=== PATIENT | female | born 1990 ===

== ENCOUNTER 2016-09-18 10:34 | Emergency (ER) | payer OTHER ==
[2016-09-18] MEDS ORDERED: Albuterol-Ipratrop 3 mg / 0.5 (3 ml) UD ONE ×2 (11:03→12:07)
[2016-09-18] MEDS ORDERED: Albuterol-Ipratrop 3 mg / 0.5 (3 ml) UD INH STA ×2 (11:04→11:45)
--- NOTE | 2016-09-18 12:34 | C.PDOC ---
History Of Present Illness 26-year-old female, PMHx includes Asthma, presents to the emergency department with complaints of an increased cough and wheezing, after she was sitting in her class prior to arrival. Patient states it was very hot and may have exacerbated her asthma. Denies nausea/vomiting, shortness of breath, chest pain or any other associated symptoms. No other complaints at this time. Time Seen by Provider: 09/18/16 10:55 Chief Complaint (Nursing): Shortness Of Breath History Per: Patient History/Exam Limitations: no limitations Onset/Duration Of Symptoms: Hrs Current Symptoms Are (Timing): Still Present Current Respiratory Medications: None (Patient did not have her inhaler) Pain Scale Rating Of: 1 Recent travel outside of the [place]: No Past Medical History Reviewed: Historical Data, Nursing Documentation, Vital Signs Vital Signs: Last Vital Signs Temp 98.2 F 09/18/16 13:02 Pulse 83 09/18/16 13:02 Resp 16 09/18/16 13:02 BP 101/77 09/18/16 13:02 Pulse Ox 100 09/18/16 13:47 - Medical History PMH: Asthma, Pancreatitis Family History: States: No Known Family Hx - Social History Hx Alcohol Use: No Hx Substance Use: No - Immunization History Hx Tetanus Toxoid Vaccination: No Hx Influenza Vaccination: No Hx Pneumococcal Vaccination: No Review Of Systems Except As Marked, All Systems Reviewed And Found Negative. Constitutional: Negative for: Fever, Chills Cardiovascular: Negative for: Chest Pain, Palpitations Respiratory: Positive for: Cough, Shortness of Breath, Wheezing Physical Exam - Physical Exam Appears: Non-toxic, No Acute Distress, Other (speaking in full sentences) Skin: Warm, Dry, No Rash Head: Atraumatic, Normacephalic Eye(s): bilateral: Normal Inspection, PERRL, EOMI Nose: Normal Oral Mucosa: Moist Lips: Normal Appearing Neck: Normal ROM, Supple Chest: Symmetrical Cardiovascular: Rhythm Regular, No Friction Rub, No Murmur Respiratory: Normal Breath Sounds, No Accessory Muscle Use, No Rales, No Rhonchi , No Stridor, Wheezing Gastrointestinal/Abdominal: Soft, No Tenderness Back: Normal Inspection, No CVA Tenderness Extremity: Normal ROM, No Swelling Pulses: Left Dorsalis Pedis: Normal, Right Dorsalis Pedis: Normal Neurological/Psych: Oriented x3, Normal Speech, Normal Motor Gait: Steady ED Course And Treatment O2 Sat by Pulse Oximetry: 100 (on RA) Pulse Ox Interpretation: Normal Medical Decision Making Medical Decision Making: On re-exam, the patient reports improvement of symptoms with no pain at this time. Lungs are CTA, heart is RRR, abdomen is soft, non-tender and patient is tolerating Po well. Ambulatory in the ED with steady gait. Follow up with the medical doctor within 1-2 days. Return if worsened, Disposition - Disposition Referrals: [facility] [Outside] Disposition: HOME/ ROUTINE Disposition Time: 12:35 Condition: GOOD Additional Instructions: Follow up with the medical doctor within 1-2 days. Return if worsened, Prescriptions: Albuterol 0.5% [Albuterol 0.5% Inhal Madelyn (2.5 mg/0.5 ml) UD] 0.5 ml IH Q6 PRN # 20 neb PRN Reason: Wheezing Nebulizer Accessories [Reusable Nebulizer Kit] 1 each MC Q4 #1 kit predniSONE [Prednisone] 10 mg PO BID #10 tab Instructions: Asthma (ED) Forms: School Excuse - Clinical Impression Clinical Impression: Acute asthma exacerbation - Scribe Statement The provider has reviewed the documentation as recorded by the Scribe (Deepthi Quiles) All medical record entries made by the Scribe were at my direction and personally dictated by me. I have reviewed the chart and agree that the record accurately reflects my personal performance of the history, physical exam, medical decision making, and the department course for this patient. I have also personally directed, reviewed, and agree with the discharge instructions and disposition.
[2016-09-18 13:03] VITALS: BP 101/77; PULSE 83; RESP 16; TEMP 98.2
[2016-09-18 13:19] VITALS: O2SAT 100
== END 2016-09-18 13:02 | disposition home or self-care (01) ==
LOC: C.ER 10:34
DX: J45.901 Unspecified asthma with (acute) exacerbation (principal)